=== PATIENT | female | born 1950 | race Caucasian/White ===

== ENCOUNTER → 2021-10-15 | Outpatient (CLI) | payer MEDICARE | LOC: M WHC 08:59 | PROVIDERS: ATTEND Family Medicine | DX: Z12.31 Encounter for screening mammogram for malignant neoplasm of breast (principal); Z78.0 Asymptomatic menopausal state; Z80.9 Family history of malignant neoplasm, unspecified ==

== ENCOUNTER → 2022-10-16 | Outpatient (CLI) | payer MEDICARE | LOC: M WHC 09:56 | PROVIDERS: ATTEND Family Medicine | DX: Z12.31 Encounter for screening mammogram for malignant neoplasm of breast (principal) ==

== ENCOUNTER → 2023-10-20 | Outpatient (CLI) | payer MEDICARE | LOC: M WHC 08:30 | PROVIDERS: ATTEND Family Medicine | DX: Z12.31 Encounter for screening mammogram for malignant neoplasm of breast (principal) ==

== ENCOUNTER 2023-12-03 09:13 | Day surgery (SDC) | payer MEDICARE ==
[~2023-12-03] VITALS: Ht 160 cm; Wt 62.6 kg
[~2023-12-03 09:13] MED LIST: ASPI81TA26 PO; LOSA50TA28 PO; SIMV40TA20 PO
[2023-12-03] MEDS ORDERED: LIDOCAINE 2% 100MG/5ML SDV (FOR ANES.) As Ordered ONE (09:33)
[2023-12-03] MEDS ORDERED: propofoL 200 MG/20 ML VIAL As Ordered ONE (09:33)
[2023-12-03] MEDS: NS 1,000 ML IV ONE (09:40)
[2023-12-03 11:05] VITALS: BP 141/82; TEMP 98.7; O2SAT 98
== END 2023-12-03 11:17 | disposition home or self-care (01) ==
LOC: M OPP 09:13
PROVIDERS: ATTEND Internal Medicine Gastroenterology
DX: Z12.11 Encounter for screening for malignant neoplasm of colon (principal); D12.4 Benign neoplasm of descending colon; K64.0 First degree hemorrhoids; K57.30 Diverticulosis of large intestine without perforation or abscess without bleeding; Z79.02 Long term (current) use of antithrombotics/antiplatelets; Z79.82 Long term (current) use of aspirin; Z79.899 Other long term (current) drug therapy; Z88.5 Allergy status to narcotic agent

== ENCOUNTER → 2024-10-25 | Outpatient (CLI) | payer MEDICARE | LOC: M WHC 09:31 | PROVIDERS: ATTEND Family Medicine | DX: Z12.31 Encounter for screening mammogram for malignant neoplasm of breast (principal); R92.323 Mammographic fibroglandular density, bilateral breasts ==